=== PATIENT | female | born 1945 | race African-American/Black ===

== ENCOUNTER 2017-07-10 08:06 | Day surgery (SDC) | payer OTHER ==
[~2017-07-10] VITALS: Ht 149.9 cm; Wt 71.2 kg
[2017-07-10] MEDS ORDERED: SODIUM CHLORIDE 0.9% 1,000 ML IV SCH ×2 (09:55→11:45)
[2017-07-10] MEDS ORDERED: ALEN70TA46 PO (11:07)
[2017-07-10] MEDS ORDERED: METO50TA5 PO (11:07)
[2017-07-10] MEDS ORDERED: SIMV20TA6 PO (11:07)
[2017-07-10] MEDS ORDERED: MIDAZOLAM HCL 2 MG/2 ML VIAL ONE (11:28)
[2017-07-10] MEDS ORDERED: PROPOFOL 200MG/20ML VIAL IV ONE (11:30)
[2017-07-10] MEDS ORDERED: LIDOCAINE HCL 2%/EPINEPHRINE 1:100,000 20 ML VIAL INFIL ONE (11:31)
[2017-07-10] MEDS ORDERED: TETRACAINE 0.5% OPHTH DROPS 4ML ONE (11:31)
[2017-07-10] MEDS ORDERED: NEO/POLYMYX B SULF/DEXAMETH OPHTH OINT 3.5GM ONE (11:31)
[2017-07-10] MEDS ORDERED: BUPIVACAINE HCL/PF 0.75% (7.5MG/ML) 10ML ONE (11:31)
[2017-07-10] MEDS ORDERED: PREDNISOLONE ACETATE 1% OPHTH DROPS 1ML ONE (11:31)
[2017-07-10] MEDS ORDERED: BALANCED SALT IRRIG SOLN 15ML ONE (11:31)
[2017-07-10] MEDS ORDERED: CIPROFLOXACIN 0.3% OPHTH SOLN 2.5ML ONE (11:31)
[2017-07-10] MEDS ORDERED: ESMOLOL HCL 10MG/ML 10ML VIAL IV ONE (11:39)
[2017-07-10] MEDS ORDERED: MORPHINE SULFATE 2 MG/ML CPJ (NOT FOR IM USE) IV PRN (11:45)
[2017-07-10] MEDS ORDERED: ONDANSETRON HCL 4MG/2ML VIAL IV PRN (11:45)
== END 2017-07-10 13:25 | disposition home or self-care (01) ==
LOC: OR 08:06 → EDBD 08:06 → OR 13:25
PROVIDERS: ATTEND Ophthalmology
DX: H11.002 Unspecified pterygium of left eye (principal); E66.3 Overweight; I10 Essential (primary) hypertension; I44.0 Atrioventricular block, first degree; E78.5 Hyperlipidemia, unspecified; Z90.710 Acquired absence of both cervix and uterus
CPT/HCPCS: 65426; 82962; J2250; J3490; J7030; J2704